=== PATIENT | male | born 1940 | race Caucasian/White ===

== ENCOUNTER 2019-04-23 07:41 | Emergency (ER) | payer OTHER, MEDICAID ==
[~2019-04-23] VITALS: Ht 167.6 cm; Wt 75.0 kg
[2019-04-23 07:48] VITALS: BP 116/78
[2019-04-23] MEDS ORDERED: SILVER NITRATE APPLICATOR STICK TOP ONE (08:30)
== END 2019-04-23 09:58 | disposition home or self-care (01) ==
LOC: ER 07:41
DX: I83.891 Varicose veins of right lower extremity with other complications (principal); I10 Essential (primary) hypertension; Z90.49 Acquired absence of other specified parts of digestive tract
CPT/HCPCS: 99283